=== PATIENT | male | born 1955 | race African-American/Black ===

== ENCOUNTER 2017-06-24 20:33 | Emergency (ER) | payer MEDICAID, OTHER ==
[2017-06-24 21:22] LABS: #Basophils 0.1 thou/uL (0.0-0.2); #Eosinphils 0.1 thou/uL (0.0-0.7); #Lymphocytes 1.9 thou/uL (1.20-3.40); #Monocytes 0.3 thou/uL (0.11-0.59); #Neutrophils 2.1 thou/uL (1.40-6.50); %Basophils 1.4 % (0.0-1.0); %Eosinophils 2.7 % (0.0-10.0); %Lymphocytes 42.2 % (21.0-51.0); %Monocytes 6.2 % (0.0-10.0); Hematocrit 40.7 % (42.0-52.0); Mean Platelet Volume 6.3 fL (7.4-10.4); Red Blood Cell (RBC) Count 4.03 mill/uL (4.70-6.10); White Blood Cell (WBC) Count 4.4 thou/uL (4.8-10.8)
[2017-06-24 21:46] LABS: ALT (SGPT) 10 U/L (8-55); AST (SGOT) 19 U/L (5-34); Alkaline Phosphatase 63 U/L (40-150); Anion Gap 17 mmol/L (10-20); BUN (Urea Nitrogen) 15 mg/dL (8.4-25.7); Bilirubin, Total 0.3 mg/dL (0.2-1.2); CK (CPK) 244 U/L (30-200); Calc. Creatinine Clearance 0 mL/min (70-130); Calcium 9.2 mg/dL (7.8-10.44); Carbon Dioxide 23 mmol/L (23-31); Chloride 104 mmol/L (98-107); Estimated GFR-MDRD 71; Globulin 3.4 g/dL (2.4-3.5); Protein, Total 7.4 g/dL (5.8-8.1)
[2017-06-24 21:50] LABS: Troponin I Less than 0.010 ng/mL (< 0.028)
--- NOTE | 2017-06-24 22:02 | RAD ---
CHEST ONE VIEW: History: Chest pain. FINDINGS: The cardiac silhouette and pulmonary vasculature are unremarkable. Mediastinum is midline. There is no confluent airspace consolidation or evidence of pneumothorax. telemetry monitor leads overlie the c hest. IMPRESSION: No active cardiopulmonary abnormalities are demonstrated. POS: [facility]
[2017-06-25 01:39] LABS: Troponin I Less than 0.010 ng/mL (< 0.028)
--- NOTE | 2017-08-10 12:40 | EKG ---
Test Reason : CP Blood Pressure : / mmHG Vent. Rate : 070 BPM Atrial Rate : 070 BPM P-R Int : 206 ms QRS Dur : 096 ms QT Int : 408 ms P-R-T Axes : 069 034 046 degrees QTc Int : 440 ms Normal sinus rhythm No STEMI Normal ECG Confirmed by MARICARMEN YO ([id number]), deputy editor in chief RAMONA GOLD ([id number] on 08/10/2017 12:40:36 PM Referred By: Confirmed By:MARICARMEN YO
== END 2017-06-25 03:10 | disposition home or self-care (01) ==
LOC: ERS 20:33
DX: M94.0 Chondrocostal junction syndrome [Tietze] (principal); R03.0 Elevated blood-pressure reading, without diagnosis of hypertension
CPT/HCPCS: 36415; 71010; 80053; 82550; 82553; 84484; 85025; 93005; 99406

== ENCOUNTER 2020-03-04 14:05 | Inpatient (IN) | payer MEDICARE, MEDICAID ==
[2020-03-04] MEDS ORDERED: Ketorolac Tromethamine 30 MG/ML VIAL ONE (15:47)
--- NOTE | 2020-03-04 17:48 | HP ---
PRIMARY CARE PHYSICIAN: Kelly Hannon DO CHIEF COMPLAINT: Hemoptysis and right-sided pain after fall. HISTORY OF PRESENT ILLNESS: This is a 65-year-old male who presented as a transfer from the [facility]. He reports that 3 days ago, he fell. He was intoxicated at that time. He has had pain in his right side, lower chest, upper abdomen. Since along with pain on the right lateral leg just distal to the knee, he has been able to ambulate with this. The patient reports that for the last couple of days since the fall, he has coughed some and had some hemoptysis. He has coughed up some bloody sputum and some clots. No trouble breathing. He did not have any cough prior to this. He denies any weight loss or night sweats. Never had any problems with lung and lung infections before. The patient had x-rays in the outside emergency room showing no evidence for fracture or dislocation of his knee or tib-fib. He did due to the hemoptysis, had a CT scan of the chest done per the ER physician report. There the CT showed a 3 cm cystic lesion, likely infectious and chronic, most likely representing an atypical infection such as tuberculosis or fungus. Due to this, the patient was transferred to our emergency room. In the ER here, he has had normal vital signs. His lab work did not show any leukocytosis. No other significant abnormalities. He was given Rocephin and azithromycin in the outside emergency room. REVIEW OF SYSTEMS: CONSTITUTIONAL: No fevers, no chills, no weight loss. No night sweats. EYES: No double vision or blurred vision. ENT: No congestion, drainage, or sore throat. CARDIOVASCULAR: No cardiac chest pain. No palpitations or racing heart. PULMONARY: The patient has some pain into the right lateral chest wall that when he moves or breathes and then the hemoptysis as per the HPI. No chest tightness. No wheezing. No shortness of breath. GASTROINTESTINAL: A little bit of right upper abdomen soreness, but otherwise no other abdominal pain. No nausea or vomiting. No diarrhea or constipation. GENITOURINARY: No dysuria or hematuria. MUSCULOSKELETAL: See HPI. The patient also has had some right wrist pain since the fall, had negative x-rays for that at the outside emergency room. SKIN: No rashes or lesions noted. NEUROLOGIC: No numbness, tingling, or focal weakness. PAST MEDICAL HISTORY: 1. Hypertension. 2. Peptic ulcer disease. 3. Gout. PAST SURGICAL HISTORY: 1. Ulcer surgery in the past. 2. Right inguinal hernia repair. SOCIAL HISTORY: The patient is single. He smokes a pack of cigarettes per day. He drinks about a 12 pack of beer per week. No illicit drugs. He is a full code. Should he be incapacitated, he states that his brother would be his medical decision maker. His name is Artie Simmons. The patient does report that he was incarcerated back in the , never been around by or has tuberculosis that he knows of. FAMILY HISTORY: Mother at 92. Father of cancer of the lung at 52. No family history of tuberculosis. ALLERGIES: NO KNOWN DRUG ALLERGIES. CURRENT MEDICATIONS: 1. Uloric 40 mg daily. 2. Allopurinol 100 mg daily. 3. Nifedipine 30 mg daily, extended release. PHYSICAL EXAMINATION: VITAL SIGNS: Blood pressure 167/95, pulse 73, respirations 18, temperature 97.6, O2 saturation 96% on room air. GENERAL: This is a well-developed, well-nourished male, in no acute distress. HEENT: Pupils equal, round, and reactive to light. Oropharynx clear without lesions, erythema, or exudate. NECK: Supple. No lymphadenopathy. No thyroid nodules or enlargement. No JVD. HEART: Regular rate and rhythm. No murmurs, rubs, or gallops. LUNGS: Clear to auscultation bilaterally. No wheezes, crackles, or rhonchi. He has minimal tenderness to palpation of the right lower lateral rib cage, but no point tenderness. ABDOMEN: Soft, nontender to palpation. Normoactive bowel sounds. No hepatosplenomegaly or other masses. EXTREMITIES: No clubbing, cyanosis, or edema. He does have a rather prominent right proximal fibular head with some swelling around it. He has good range of motion. Mostly the pain is when he bears weight. The patient also has some mild diffuse tenderness to the right wrist. Full range of motion. No swelling, warmth, or redness or any significant tenderness to palpation. SKIN: No rashes noted. He does have a large wart on the right pointer finger that he states has been there for years. No other lesions noted. NEUROLOGIC: The patient moves all extremities equally. No facial droop. DIAGNOSTIC STUDIES: X-ray of the right wrist showing no evidence of fracture or dislocation. X-ray of the right tib-fib is without fracture or dislocation. X-ray of the chest and right ribs showed no fracture or infiltrate. There is cavitary lesion visible in the right upper lobe. It appears CT scan does show a 2.5 cm fluid and air-filled cavitary lesion of the right posterior mid lung and a few other very small lesions as well in the lower lung. ASSESSMENT AND PLAN: 1. Cavitary lesions of the right lung tuberculosis versus fungus versus other atypical infection, most likely source of this. We will put the patient in the hospital under respiratory isolation. We will obtain AFB stain and culture x3 with induced respiratory sputums. The patient is being ruled out for COVID as well as per hospital protocol. 2. Right knee contusion. No evidence of fracture or significant dislocation at this time. 3. Wrist sprain. No evidence of fracture. 4. Hypertension. Resume the patient's home medications. 5. Gout. Resume the patient's home medications. 6. Tobacco abuse. We will nutrition counselor the patient on cessation. 7. Alcohol abuse without any history of withdrawals. 8. Gastrointestinal prophylaxis. The patient is on Pepcid twice a day. 9. Deep venous thrombosis prophylaxis. The patient is on sequential compression devices while in bed. We will hold off Lovenox given the hemoptysis recently. 10. Code status. I did discuss that the patient is a full code. Should he be incapacitated, his brother would be his medical decision maker. His name is Artie Simmons. Job ID: [id number]
[2020-03-04 18:13] VITALS: BMI 25.0
[2020-03-04] MEDS ORDERED: Acetaminophen 325 MG TAB PO PRN (18:15)
[2020-03-04] MEDS ORDERED: Ondansetron ODT 4 MG TAB PO PRN (18:15)
[2020-03-04] MEDS ORDERED: Senokot S 8.6-50 MG TAB PO PRN (18:15)
[2020-03-04] MEDS ORDERED: Ondansetron PF 4 MG/2 ML Vial IVP PRN (18:15)
[2020-03-04] MEDS ORDERED: Acetaminophen 650 MG Suppository PR PRN (18:15)
[2020-03-04] MEDS ORDERED: Guaifenesin DM 100-10/5 ML UDCUP PO PRN (18:15)
--- NOTE | 2020-03-04 20:52 | PDOC.EVN ---
Event Note - Event Note Event Note: Jamie Waite called to ensure that we were aware of the read on the patient's wrist x-ray that showed possible scapholunate dissociation. That x- ray is within our system. Discussed with Dr. Nelson. Recommended Ortho evaluation.
[2020-03-04] MEDS: Famotidine 20 MG TAB PO SCH (21:35)
--- NOTE | 2020-03-05 00:51 | CON ---
DATE OF CONSULTATION: REASON FOR CONSULTATION: Hemoptysis. HISTORY OF PRESENT ILLNESS: This is a 65-year-old, who presents to the ER with a 3-day history of coughing up blood after falling on his right side while walking in the dark the other night. He sustained trauma to his right leg also to the right side of his chest. He had been having some shortness of breath, shortly afterward coughed up some dark material. He has only had a few such episodes. He denies any weight loss, night sweats, or fever. Denies any previous history of TB. He does have a risk factor of being in [facility] for 2 years back in the . He does not remember the status of skin test at that time. PAST MEDICAL HISTORY: Gout, hypertension, and peptic ulcer disease. PAST SURGICAL HISTORY: Ulcer surgery and right inguinal hernia repair. SOCIAL HISTORY: Smokes about a pack per day. Occasionally drinks alcohol. Does not use illicit drugs. He is a retired spot welder body assembly. ALLERGIES: NONE. MEDICATIONS: Prior to admission on, 1. Uloric 40 mg daily. 2. Allopurinol 100 mg daily. 3. Nifedipine 30 mg daily. REVIEW OF SYSTEMS: Twelve-point review of systems is otherwise negative. PHYSICAL EXAMINATION: VITAL SIGNS: Temperature 97.7, pulse 95, blood pressure 126/79, and O2 saturation 95% on room air. GENERAL: He is a healthy-appearing male in no acute distress. HEENT: Remarkable for slightly poor dentition. NECK: No adenopathy or JVD. LUNGS: Clear without rhonchi or wheezing. CARDIOVASCULAR: S1 and S2. Regular without audible murmur. ABDOMEN: Soft and nontender. EXTREMITIES: No clubbing, cyanosis, or edema. LABORATORY DATA: Urinalysis was negative for blood. White blood cell count is 5.5, hematocrit 47, platelet count 303. Sodium 140, potassium 3.8, chloride 105, CO2 of 22, BUN 12, creatinine 1.1, glucose 116. Reviewed CT scan. He has a 2.9 x 2.2 cm cavitary area in the medial portion of the right lower lobe with air-fluid level. He has several subcentimeter nodular areas on that same side. ASSESSMENT: Hemoptysis. Differential diagnosis in this case would be ruptured bleb, which I favor. Tuberculosis is a possibility, albeit less secondary to the fact he is not having any constitutional symptoms. RECOMMENDATIONS: I would suggest obtaining sputum for AFB. If the sputum is negative, consider bronchoscopy at a later date. Job ID: [id number]
[2020-03-05 07:03] LABS: #Eosinphils 0.1 thou/uL (0.0-0.7); #Lymphocytes 1.3 thou/uL (1.20-3.40); #Monocytes 0.4 thou/uL (0.11-0.59); #Neutrophils 2.1 thou/uL (1.40-6.50); %Basophils 0.8 % (0.0-1.0); %Eosinophils 3.6 % (0.0-10.0); %Monocytes 10.9 % (0.0-10.0); %Neutrophils 52.7 % (42.0-75.0); Hemoglobin 12.5 g/dL (14.0-18.0); Mean Corpuscular HGB CONC 32.9 g/dL (32.0-36.0); Mean Corpuscular Hemoglobin 32.7 pg (27.0-31.0); Mean Corpuscular Volume 99.4 fL (78.0-98.0); Mean Platelet Volume 6.7 fL (7.4-10.4); Platelet Count 290 thou/uL (130-400); RBC Distribution Width 12.6 % (11.5-14.5); Red Blood Cell (RBC) Count 3.83 mill/uL (4.70-6.10); White Blood Cell (WBC) Count 3.9 thou/uL (4.8-10.8)
[2020-03-05 07:24] LABS: Anion Gap 11 mmol/L (10-20); BUN (Urea Nitrogen) 15 mg/dL (8.4-25.7); Calc. Creatinine Clearance 79 mL/min (70-130); Calcium 8.9 mg/dL (7.8-10.44); Carbon Dioxide 25 mmol/L (23-31); Chloride 107 mmol/L (98-107); Estimated GFR-MDRD Greater than 90; Glucose 94 mg/dL (80-115); Potassium 3.6 mmol/L (3.5-5.1); Sodium 139 mmol/L (136-145)
[2020-03-05] MEDS: Famotidine 20 MG TAB PO SCH ×2 (08:20→21:43)
[2020-03-05] MEDS: HYDROcodone/Acetaminophen 5/325 mg Tablet PO PRN ×2 (10:43→22:51)
--- NOTE | 2020-03-05 13:00 | PRG ---
DATE OF SERVICE: 03/05/2020 SUBJECTIVE: The patient is doing okay, coughed up some blood this morning. AFB stain is not back yet. OBJECTIVE: VITAL SIGNS: Temperature 98.1, pulse 63, respirations 16, O2 saturation 98% on room air, and blood pressure 165/82. HEENT: Unremarkable. LUNGS: Clear. CARDIAC: S1 and S2, regular. ABDOMEN: Soft. EXTREMITIES: No edema. ASSESSMENT: 1. Favor this being a ruptured bleb given air-fluid level and coincidence with trauma. 2. Rule out tuberculosis. PLAN: Await AFB. Job ID: [id number]
[2020-03-05] MEDS ORDERED: NIFEdipine XL 30 MG TAB PO SCH (13:30)
[2020-03-05] MEDS: Lidocaine 5% Patch TD SCH (16:20)
--- NOTE | 2020-03-05 18:34 | PDOC.HOSPP ---
- Subjective Encounter Date: 03/05/20 Encounter Time: 11:20 Subjective: pt up in bed states that he had one bloody sputum today. - Objective Vital Signs & Weight: Vital Signs (12 hours) Temp Pulse Resp BP BP Pulse Ox 03/05/20 16:45 98.7 F 76 16 130/79 96 03/05/20 13:28 63 03/05/20 11:57 98.1 F 63 16 165/82 H 98 03/05/20 08:00 95 03/05/20 07:47 98.5 F 68 16 152/84 H 95 Weight Weight 159 lb 13.362 oz Result Diagrams: 03/05/20 06:18 03/05/20 06:18 Hospitalist ROS - Review of Systems Respiratory: reports: sputum Cardiovascular: denies: chest pain, palpitations, orthopnea, paroxysmal noc. dyspnea, edema, light headedness, other Gastrointestinal: denies: nausea, vomiting, abdominal pain, diarrhea, constipation, melena, hematochezia, other Musculoskeletal: reports: other (right side flank pain) - Medication Medications: Active Medications Generic Name Dose Route Start Last Admin Trade Name Freq PRN Reason Stop Dose Admin Hydrocodone Bitart/Acetaminophen 1 tab 03/04/20 18:15 03/05/20 10:43 [place] 5/325 PO 1 tab Q4H PRN Administration Moderate Pain (4-6) Famotidine 20 mg 03/04/20 21:00 03/05/20 08:20 Pepcid PO 20 mg BID AROLDO Administration Lidocaine 1 patch 03/05/20 16:00 03/05/20 16:20 Lidoderm 5% Patch TD 1 patch 1600 AROLDO Administration - Exam Neck: negative: supple, symmetric, no JVD, no thyromegaly, no lymphadenopathy, no carotid bruit, JVD Heart: negative: RRR, no murmur, no gallops, no rubs, normal peripheral pulses, irregular, diminshed peripheral pulses, murmur present, II/IV, III/IV Respiratory: negative: CTAB, no wheezes, no rales, no ronchi, normal chest expansion, no tachypnea, normal percussion, rales, rhonchi, tachypneic, wheezes Gastrointestinal: negative: soft, non-tender, non-distended, normal bowel sounds , no palpable masses, no hepatomegaly, no splenomegaly, no bruit, no guarding, no rigidity, tender to palpation, distended, diminished bowl sounds, voluntary guarding Hosp A/P (1) Cavitary lesion of lung Code(s): J98.4 - OTHER DISORDERS OF LUNG Status: Acute (2) Hemoptysis Code(s): R04.2 - HEMOPTYSIS Status: Acute (3) Chest pain Code(s): R07.9 - CHEST PAIN, UNSPECIFIED Status: Acute (4) HTN (hypertension) Code(s): I10 - ESSENTIAL (PRIMARY) HYPERTENSION Status: Acute - Plan pt's sputum smear and culture pending. will continue to monitor. ortho consulted for his wrist. pt has no fever/diaphoresis or weight loss.
--- NOTE | 2020-03-05 19:34 | CON ---
DATE OF CONSULTATION: 03/05/2020 HISTORY OF PRESENT ILLNESS: Mr. Simmons is a 65-year-old male who reports that 3 days prior to admission, he was intoxicated and fell injuring the right side of his lower chest, upper abdomen, possibly his knee and wrist. He hit the anterolateral aspect of the right knee and developed some swelling consistent with a contusion. He has been able to ambulate since then. He has had a significant pulmonary history with coughing up bloody sputum and clots. He was brought here for what appears to be a cystic lesion which is likely infectious, either due to tuberculosis or fungus. The patient did have x-rays of the right knee which showed some soft tissue swelling, but no acute fractures and no significant degenerative changes. X-rays of the right wrist show no acute fractures, but possible widening of the scapholunate joint which could represent some scapholunate dissociation. PLAN: I discussed with the patient's nurse that based on no acute fractures, he probably has a contusion on the anterolateral aspect of the right knee and probably a sprain of the right wrist, possibly a scapholunate ligament injury. I would recommend that they put a wrist immobilizer on the right wrist and he needs to get his lungs evaluated. I would be happy to see him in my office in 2 to 3 weeks. The right knee should be self-limiting problem, but of course I would be happy to see him for that as well. Job ID: [id number]
[2020-03-06] MEDS: HYDROcodone/Acetaminophen 5/325 mg Tablet PO PRN ×4 (03:02→21:55)
[2020-03-06] MEDS: Lidocaine Patch Removal TOP SCH (05:49)
[2020-03-06 08:16] LABS: Hemoglobin 13.5 g/dL (14.0-18.0); Mean Corpuscular HGB CONC 34.2 g/dL (32.0-36.0); Mean Corpuscular Volume 99.3 fL (78.0-98.0); Mean Platelet Volume 6.8 fL (7.4-10.4); Platelet Count 326 thou/uL (130-400); RBC Distribution Width 12.4 % (11.5-14.5); Red Blood Cell (RBC) Count 3.99 mill/uL (4.70-6.10); White Blood Cell (WBC) Count 4.3 thou/uL (4.8-10.8)
[2020-03-06 08:23] LABS: Eosinophils 4 % (0-10); Lymphocytes 55 % (21-51); MDiff Complete? YES; Monocytes 14 % (0-10); Neutrophil 27 % (42-75); Ovalocytes SLIGHT = 2-5 cells (100X) (0-1/hpf); Platelet Morphology Comment Appears Adequate
[2020-03-06] MEDS: Famotidine 20 MG TAB PO SCH ×2 (09:52→21:55)
[2020-03-06] MEDS: Febuxostat 40 MG TAB PO SCH (09:52)
[2020-03-06] MEDS: NIFEdipine XL 30 MG TAB PO SCH (09:54)
[2020-03-06] MEDS: Allopurinol 100 MG TAB PO SCH (09:55)
--- NOTE | 2020-03-06 13:09 | PRG ---
DATE OF SERVICE: 03/06/2020 SUBJECTIVE: The patient reports he is doing well. He is no longer coughing up blood. The results from his AFB have not returned, but two specimens are sitting in the lab. OBJECTIVE: VITAL SIGNS: Temperature is 98.0, pulse 74, respirations 18, O2 saturation is 98% on room air, and blood pressure 124/75. HEENT: Clear. NECK: No JVD. LUNGS: Clear. CARDIAC: S1, S2. Regular. ABDOMEN: Soft. EXTREMITIES: No edema. ASSESSMENT: Likely ruptured bleb. PLAN: If AFBs are negative, he can go home tomorrow. Job ID: [id number]
[2020-03-06] MEDS: Lidocaine 5% Patch TD SCH (15:42)
--- NOTE | 2020-03-06 16:23 | PDOC.HOSPP ---
- Subjective Encounter Date: 03/06/20 Encounter Time: 10:30 Subjective: pt up in bed no complains. No hemoptysis. - Objective Vital Signs & Weight: Vital Signs (12 hours) Temp Pulse Resp BP Pulse Ox 03/06/20 12:00 98.0 F 74 18 124/75 98 03/06/20 08:00 97.5 F L 66 16 171/79 H 98 Weight Weight 159 lb 13.362 oz Result Diagrams: 03/06/20 06:16 03/05/20 06:18 Hospitalist ROS - Review of Systems Cardiovascular: denies: chest pain, palpitations, orthopnea, paroxysmal noc. dyspnea, edema, light headedness, other Gastrointestinal: denies: nausea, vomiting, abdominal pain, diarrhea, constipation, melena, hematochezia, other Genitourinary: denies: dysuria, frequency, incontinence, hematuria, retention, other - Medication Medications: Active Medications Generic Name Dose Route Start Last Admin Trade Name Freq PRN Reason Stop Dose Admin Hydrocodone Bitart/Acetaminophen 1 tab 03/04/20 18:15 03/06/20 15:40 [place] 5/325 PO 1 tab Q4H PRN Administration Moderate Pain (4-6) Hydrocodone Bitart/Acetaminophen 2 tab 03/04/20 18:15 03/06/20 09:52 [place] 5/325 PO 2 tab Q4H PRN Administration Severe Pain (7-10) Allopurinol 100 mg 03/06/20 09:00 03/06/20 09:55 Zyloprim PO 100 mg DAILY AROLDO Administration Famotidine 20 mg 03/04/20 21:00 03/06/20 09:52 Pepcid PO 20 mg BID AROLDO Administration Febuxostat 40 mg 03/06/20 09:00 03/06/20 09:52 Uloric PO 40 mg DAILY AROLDO Administration Lidocaine 1 patch 03/05/20 16:00 03/06/20 15:42 Lidoderm 5% Patch TD 1 patch 1600 AROLDO Administration Miscellaneous Medication 1 each 03/06/20 04:00 03/06/20 05:49 Lidocaine Patch Removal TOP Not Given 0400 AROLDO Nifedipine 30 mg 03/06/20 09:00 03/06/20 09:54 Procardia Xl PO 30 mg DAILY AROLDO Administration - Exam Heart: negative: RRR, no murmur, no gallops, no rubs, normal peripheral pulses, irregular, diminshed peripheral pulses, murmur present, II/IV, III/IV Respiratory: negative: CTAB, no wheezes, no rales, no ronchi, normal chest expansion, no tachypnea, normal percussion, rales, rhonchi, tachypneic, wheezes Gastrointestinal: negative: soft, non-tender, non-distended, normal bowel sounds , no palpable masses, no hepatomegaly, no splenomegaly, no bruit, no guarding, no rigidity, tender to palpation, distended, diminished bowl sounds, voluntary guarding Hosp A/P (1) Cavitary lesion of lung Code(s): J98.4 - OTHER DISORDERS OF LUNG Status: Acute (2) Hemoptysis Code(s): R04.2 - HEMOPTYSIS Status: Acute (3) Chest pain Code(s): R07.9 - CHEST PAIN, UNSPECIFIED Status: Acute (4) HTN (hypertension) Code(s): I10 - ESSENTIAL (PRIMARY) HYPERTENSION Status: Acute - Plan pt's sputum smear and culture pending. will continue to monitor. ortho consulted for his wrist. pt has no fever/diaphoresis or weight loss. 03/06 pt doing well. possible discharge in am if AFB is negative.
[2020-03-07] MEDS: HYDROcodone/Acetaminophen 5/325 mg Tablet PO PRN ×3 (05:05→21:56)
[2020-03-07] MEDS: Lidocaine Patch Removal TOP SCH (05:05)
[2020-03-07] MEDS: NIFEdipine XL 30 MG TAB PO SCH (09:24)
[2020-03-07] MEDS: Allopurinol 100 MG TAB PO SCH (09:24)
[2020-03-07] MEDS: Febuxostat 40 MG TAB PO SCH (09:24)
[2020-03-07] MEDS: Famotidine 20 MG TAB PO SCH ×2 (09:24→21:56)
--- NOTE | 2020-03-07 10:12 | PRG ---
DATE OF SERVICE: 03/07/2020 SUBJECTIVE: So far, two specimens are back negative, third is pending. He is having no hemoptysis. OBJECTIVE: VITAL SIGNS: Stable. HEENT: Unremarkable. LUNGS: Clear. CARDIAC: S1, S2 regular. ABDOMEN: Soft. EXTREMITIES: No edema. ASSESSMENT: Likely ruptured bleb. PLAN: Can go home today once his third specimen is back. No plans for bronchoscopy. The patient is to follow up in 4 to 6 weeks with a repeat chest x-ray. Job ID: [id number]
[2020-03-07] MEDS: Lidocaine 5% Patch TD SCH (16:19)
--- NOTE | 2020-03-07 18:26 | PDOC.HOSPP ---
- Subjective Encounter Date: 03/07/20 Encounter Time: 10:15 Subjective: pt up in bed no complains - Objective Vital Signs & Weight: Vital Signs (12 hours) Temp Pulse Resp BP BP Pulse Ox 03/07/20 16:00 98.3 F 68 18 150/77 H 96 03/07/20 12:00 98.5 F 65 14 152/87 H 97 03/07/20 09:24 56 L 153/78 H 03/07/20 08:00 98.1 F 56 L 18 153/78 H 97 Weight Weight 159 lb 13.362 oz Result Diagrams: 03/06/20 06:16 03/05/20 06:18 Hospitalist ROS - Review of Systems Cardiovascular: denies: chest pain, palpitations, orthopnea, paroxysmal noc. dyspnea, edema, light headedness, other Gastrointestinal: denies: nausea, vomiting, abdominal pain, diarrhea, constipation, melena, hematochezia, other Genitourinary: denies: dysuria, frequency, incontinence, hematuria, retention, other - Medication Medications: Active Medications Generic Name Dose Route Start Last Admin Trade Name Freq PRN Reason Stop Dose Admin Hydrocodone Bitart/Acetaminophen 1 tab 03/04/20 18:15 03/06/20 15:40 [place] 5/325 PO 1 tab Q4H PRN Administration Moderate Pain (4-6) Hydrocodone Bitart/Acetaminophen 2 tab 03/04/20 18:15 03/07/20 14:40 [place] 5/325 PO 2 tab Q4H PRN Administration Severe Pain (7-10) Allopurinol 100 mg 03/06/20 09:00 03/07/20 09:24 Zyloprim PO 100 mg DAILY AROLDO Administration Famotidine 20 mg 03/04/20 21:00 03/07/20 09:24 Pepcid PO 20 mg BID AROLDO Administration Febuxostat 40 mg 03/06/20 09:00 03/07/20 09:24 Uloric PO 40 mg DAILY AROLDO Administration Lidocaine 1 patch 03/05/20 16:00 03/07/20 16:19 Lidoderm 5% Patch TD 1 patch 1600 AROLDO Administration Miscellaneous Medication 1 each 03/06/20 04:00 03/07/20 05:05 Lidocaine Patch Removal TOP Not Given 0400 AROLDO Nifedipine 30 mg 03/06/20 09:00 03/07/20 09:24 Procardia Xl PO 30 mg DAILY AROLDO Administration - Exam Heart: negative: RRR, no murmur, no gallops, no rubs, normal peripheral pulses, irregular, diminshed peripheral pulses, murmur present, II/IV, III/IV Respiratory: negative: CTAB, no wheezes, no rales, no ronchi, normal chest expansion, no tachypnea, normal percussion, rales, rhonchi, tachypneic, wheezes Gastrointestinal: negative: soft, non-tender, non-distended, normal bowel sounds , no palpable masses, no hepatomegaly, no splenomegaly, no bruit, no guarding, no rigidity, tender to palpation, distended, diminished bowl sounds, voluntary guarding Hosp A/P (1) Cavitary lesion of lung Code(s): J98.4 - OTHER DISORDERS OF LUNG Status: Acute (2) Hemoptysis Code(s): R04.2 - HEMOPTYSIS Status: Acute (3) Chest pain Code(s): R07.9 - CHEST PAIN, UNSPECIFIED Status: Acute (4) HTN (hypertension) Code(s): I10 - ESSENTIAL (PRIMARY) HYPERTENSION Status: Acute - Plan pt's sputum smear and culture pending. will continue to monitor. ortho consulted for his wrist. pt has no fever/diaphoresis or weight loss. 03/06 pt doing well. possible discharge in am if AFB is negative. 03/07 pt has not had his 3rd AFB. will continue to monitor. will order one AFB. No hemoptysis.
[2020-03-08] MEDS: Lidocaine Patch Removal TOP SCH (05:39)
[2020-03-08] MEDS: HYDROcodone/Acetaminophen 5/325 mg Tablet PO PRN ×2 (05:46→11:39)
[2020-03-08 07:45] VITALS: TEMP 98.4
[2020-03-08] MEDS: NIFEdipine XL 30 MG TAB PO SCH (08:29)
[2020-03-08] MEDS: Febuxostat 40 MG TAB PO SCH (08:29)
[2020-03-08] MEDS: Allopurinol 100 MG TAB PO SCH (08:29)
[2020-03-08] MEDS: Famotidine 20 MG TAB PO SCH (08:29)
[2020-03-08 11:25] VITALS: BP 118/71
[2020-03-08] MEDS: Lidocaine 5% Patch TD SCH (16:29)
--- NOTE | 2020-03-09 02:02 | DIS ---
DATE OF ADMISSION: 03/04/2020 DATE OF DISCHARGE: 03/08/2020 DISCHARGE DIAGNOSES: 1. Hemoptysis. 2. Concerns for tuberculosis. Acid-fast bacillus x3 were negative; however, culture is still pending. 3. Cavitary lesion of the lung. 4. Chest pain. HOSPITAL COURSE: The patient is 65-year-old male who initially presented to the hospital on 03/04 with concern for hemoptysis and right-sided chest pain after a fall. The patient at this time underwent a CT, which indicated a 3 cm cyst lesion, likely infectious and chronic. At this time, the patient was seen by Pulmonary. He has been in [facility] in the past. At that time, the cavitary lesion on the CT was noted to be in the middle right lower lobe and air-fluid levels were present at that time. I did speak with Infectious Disease who thought most likely this is probably a ruptured bleb. Due to his fall, we did ribs, tibia and wrist x-ray. He did have widening of the scapholunate space. At this time, patient was seen by Orthopedic and underwent a brace placement and he will follow up with Orthopedic as an outpatient. His tibia, fibula, and rib fractures were negative. The patient had 3 acid-fast bacillus. The patient has been discharged. He will follow up as an outpatient with Pulmonary of which number has been provided. His medications will be: 1. Allopurinol. 2. Procardia. 3. Uloric. PHYSICAL EXAMINATION: VITAL SIGNS: On discharge, temperature of 98.4, 59, 16, 95% on room air, 118/71 GENERAL: He is awake, alert, and oriented x3. Does not appear in distress. CV: S1 and S2 present. No murmurs, rubs, or gallops. ABDOMEN: Soft and nontender. Bowel sounds are present x2. Again, he will be discharged home. He will follow up with primary and also with Pulmonary. Job ID: [id number]
== END 2020-03-08 16:24 | disposition home or self-care (01) | DRG 191 ==
LOC: ERS 14:05 → T4-A 15:18
PROVIDERS: ADMIT Emergency Medicine; ATTEND Emergency Medicine
DX: J43.9 Emphysema, unspecified (principal); A15.0 Tuberculosis of lung; I10 Essential (primary) hypertension; M10.9 Gout, unspecified; K27.9 Peptic ulcer, site unspecified, unspecified as acute or chronic, without hemorrhage or perforation; F17.210 Nicotine dependence, cigarettes, uncomplicated; F10.10 Alcohol abuse, uncomplicated; S80.01XA Contusion of right knee, initial encounter; S63.599A Other specified sprain of unspecified wrist, initial encounter; W19.XXXA Unspecified fall, initial encounter; Z98.890 Other specified postprocedural states; Z71.6 Tobacco abuse counseling
CPT/HCPCS: 36415; 80048; 85025; 87116; 87206; 96374; J1885